=== PATIENT | female | born 1990 | race Caucasian/White ===

== ENCOUNTER 2016-09-14 01:25 | Emergency (ER) | payer BC ==
[2016-09-14] MEDS ORDERED: Ondansetron 4 MG/2 ML SDV IVPUSH ONE (02:06)
[2016-09-14] MEDS ORDERED: Sodium Chloride 0.9% 1,000 ML IV ONE (02:06)
--- NOTE | 2016-09-14 02:15 | EDM.PDOC ---
ED HPI GENERAL MEDICAL PROBLEM - General Chief Complaint: Gastrointestinal Problem Stated Complaint: THROWING UP Time Seen by Provider: 09/14/16 01:55 - History of Present Illness INITIAL COMMENTS - FREE TEXT/NARRATIVE: HISTORY AND PHYSICAL: History of present illness: Patient is a 26-year-old female who presents after an episode of difficulty breathing at home those josie sul with a visual disturbance that she describes as her vision having turned "blue" she denies chest pain she has had nausea and vomiting over last 3 days off-and-on she did recently get yesterday she states the last 3 days have been quite stressful although she denies a history of anxiety panic attacks or any other concerns she is not on contraceptive she denies history of DVT PE she denies any other concerns she denies drugs alcohol abuse and is a nonsmoker Review of systems: As per history of present illness and below otherwise all systems reviewed and negative. Past medical history: As per history of present illness and as reviewed below otherwise noncontributory. Surgical history: As per history of present illness and as reviewed below otherwise noncontributory. Social history: No reported history of drug or alcohol abuse. Family history: As per history of present illness and as reviewed below otherwise noncontributory. Physical exam: HEENT: Atraumatic, normocephalic, pupils reactive, negative for conjunctival pallor or scleral icterus, mucous membranes moist, throat clear, neck supple, nontender, trachea midline. Lungs: Clear to auscultation, breath sounds equal bilaterally, chest nontender. Heart: S1S2, regular, negative for clicks, rubs, or JVD. Abdomen: Soft, nondistended, nontender. Negative for masses or hepatosplenomegaly. Negative for costovertebral tenderness. Pelvis: Stable nontender. Genitourinary: Deferred. Rectal: Deferred. Extremities: Atraumatic, negative for cords or calf pain. Neurovascular unremarkable. Neuro: Awake, alert, oriented. Cranial nerves II through XII unremarkable. Cerebellum unremarkable. Motor and sensory unremarkable throughout. Exam nonfocal. Diagnostics: CBC CMP troponin PT INR EKG chest x-ray Therapeutics: Saline 1 L bolus Zofran 4 mg IV Impression: #1 dyspnea resolved #2 visual disturbance resolved Definitive disposition and diagnosis as appropriate pending reevaluation and review of above. Chest Pain Score (Numeric/FACES): 6 LLQ Pain Score (Numeric/FACES): 5 - Related Data Allergies Allergy/AdvReac Type Severity Reaction Status Date / Time amoxicillin Allergy Anaphylactic Verified 09/14/16 01:45 Shock Penicillins Allergy Anaphylactic Verified 09/14/16 01:45 Shock Home Meds: Home Meds . [No Known Home Meds] 04/28/15 [History] Past Medical History - Past Health History Medical/Surgical History: Denies Medical/Surgical History [employer] History: Reports: - Infectious Disease History Infectious Disease History: Reports: Chicken Pox Social & Family History - Family History Family Medical History: Noncontributory - Tobacco Use Smoking Status *Q: Never Smoker - Alcohol Use Days Per Week of Alcohol Use: 3 Number of Drinks Per Day: 4 Total Drinks Per Week: 12 - Recreational Drug Use Recreational Drug Use: No ED ROS GENERAL - Review of Systems Review Of Systems: ROS reveals no pertinent complaints other than HPI. ED EXAM, GENERAL - Physical Exam Exam: See Below (See dictation) Course - Vital Signs Last Recorded V/S: Last Vital Signs Temp 36.4 C 09/14/16 02:30 Pulse 60 09/14/16 02:30 Resp 20 09/14/16 02:30 BP 116/74 09/14/16 02:30 Pulse Ox 98 09/14/16 02:30 - Orders/Labs/Meds Orders: Active Orders 24 hr Category Date Time Status EKG 12 Lead [EKG Documentation Completion] [RC] STAT Care 09/14/16 01:56 Active Chest 1V Frontal [CR] Stat Exams 09/14/16 02:05 Taken CULTURE URINE [RM] Stat Lab 09/14/16 03:24 Uncollected Labs: Laboratory Tests 09/14/16 09/14/16 09/14/16 Range/Units 01:30 01:30 01:50 WBC 5.64 (4.0-11.0) K/uL RBC 4.29 L (4.30-5.90) M/uL Hgb 13.6 (12.0-16.0) g/dL Hct 40.2 (36.0-46.0) % MCV 93.7 (80.0-98.0) fL MCH 31.7 (27.0-32.0) pg MCHC 33.8 (31.0-37.0) g/dL RDW Std Deviation 43.3 (28.0-62.0) fl RDW Coeff of Aly 13 (11.0-15.0) % Plt Count 277 (150-400) K/uL MPV 9.30 (7.40-12.00) fL Neut % (Auto) 42.0 L (48.0-80.0) % Lymph % (Auto) 44.9 H (16.0-40.0) % [place] % (Auto) 9.2 (0.0-15.0) % Eos % (Auto) 3.4 (0.0-7.0) % Baso % (Auto) 0.5 (0.0-1.5) % Neut # (Auto) 2.4 (1.4-5.7) K/uL Lymph # (Auto) 2.5 H (0.6-2.4) K/uL [place] # (Auto) 0.5 (0.0-0.8) K/uL Eos # (Auto) 0.2 (0.0-0.7) K/uL Baso # (Auto) 0.0 (0.0-0.1) K/uL Nucleated RBC % 0.0 /100WBC Nucleated RBCs # 0 K/uL INR (0.86-1.11) Sodium (136-146) mmol/L Potassium (3.5-5.1) mmol/L Chloride (98-110) mmol/L Carbon Dioxide (21-31) mmol/L BUN (6.0-23.0) mg/dL Creatinine (0.6-1.5) mg/dL Est Cr Clr Drug Dosing mL/min Estimated GFR (MDRD) ml/min Glucose (60-110) mg/dL Calcium (8.8-10.8) mg/dL Total Bilirubin (0.1-1.5) mg/dL AST (5-40) IU/L ALT (8-54) IU/L Alkaline Phosphatase (40-150) Troponin I (0.0-0.29) NG/ML Total Protein (6.0-8.0) g/dL Albumin (3.5-5.0) g/dL Globulin (2.0-3.5) g/dL Albumin/Globulin Ratio (1.3-2.8) Urine Color YELLOW Urine Appearance CLEAR Urine pH 6.5 (5.0-8.0) Ur Specific [place] 1.010 (1.001-1.035) Urine Protein NEGATIVE (NEGATIVE) mg/dL Urine Glucose (UA) NEGATIVE (NEGATIVE) mg/dL Urine Ketones NEGATIVE (NEGATIVE) mg/dL Urine Occult Blood LARGE H (NEGATIVE) Urine Nitrite NEGATIVE (NEGATIVE) Urine Bilirubin NEGATIVE (NEGATIVE) Urine Urobilinogen 0.2 (<2.0) EU/dL Ur Leukocyte Esterase NEGATIVE (NEGATIVE) Urine RBC 25-30 (0-2/HPF) Urine WBC 0-2 (0-5/HPF) Ur Epithelial Cells RARE (NONE-FEW) Urine Bacteria RARE (NEGATIVE) Urine HCG, Qual NEGATIVE (NEGATIVE) 09/14/16 09/14/16 09/14/16 Range/Units 01:50 01:50 01:50 WBC (4.0-11.0) K/uL RBC (4.30-5.90) M/uL Hgb (12.0-16.0) g/dL Hct (36.0-46.0) % MCV (80.0-98.0) fL MCH (27.0-32.0) pg MCHC (31.0-37.0) g/dL RDW Std Deviation (28.0-62.0) fl RDW Coeff of Aly (11.0-15.0) % Plt Count (150-400) K/uL MPV (7.40-12.00) fL Neut % (Auto) (48.0-80.0) % Lymph % (Auto) (16.0-40.0) % [place] % (Auto) (0.0-15.0) % Eos % (Auto) (0.0-7.0) % Baso % (Auto) (0.0-1.5) % Neut # (Auto) (1.4-5.7) K/uL Lymph # (Auto) (0.6-2.4) K/uL [place] # (Auto) (0.0-0.8) K/uL Eos # (Auto) (0.0-0.7) K/uL Baso # (Auto) (0.0-0.1) K/uL Nucleated RBC % /100WBC Nucleated RBCs # K/uL INR 0.92 (0.86-1.11) Sodium 140 (136-146) mmol/L Potassium 3.8 (3.5-5.1) mmol/L Chloride 108 (98-110) mmol/L Carbon Dioxide 22 (21-31) mmol/L BUN 13 (6.0-23.0) mg/dL Creatinine 0.8 (0.6-1.5) mg/dL Est Cr Clr Drug Dosing 104.26 mL/min Estimated GFR (MDRD) > 60.0 ml/min Glucose 96 (60-110) mg/dL Calcium 8.6 L (8.8-10.8) mg/dL Total Bilirubin 0.6 (0.1-1.5) mg/dL AST 20 (5-40) IU/L ALT 15 (8-54) IU/L Alkaline Phosphatase 58 (40-150) Troponin I < 0.10 (0.0-0.29) NG/ML Total Protein 7.2 (6.0-8.0) g/dL Albumin 4.4 (3.5-5.0) g/dL Globulin 2.8 (2.0-3.5) g/dL Albumin/Globulin Ratio 1.6 (1.3-2.8) Urine Color Urine Appearance Urine pH (5.0-8.0) Ur Specific [place] (1.001-1.035) Urine Protein (NEGATIVE) mg/dL Urine Glucose (UA) (NEGATIVE) mg/dL Urine Ketones (NEGATIVE) mg/dL Urine Occult Blood (NEGATIVE) Urine Nitrite (NEGATIVE) Urine Bilirubin (NEGATIVE) Urine Urobilinogen (<2.0) EU/dL Ur Leukocyte Esterase (NEGATIVE) Urine RBC (0-2/HPF) Urine WBC (0-5/HPF) Ur Epithelial Cells (NONE-FEW) Urine Bacteria (NEGATIVE) Urine HCG, Qual (NEGATIVE) Meds: Medications Discontinued Medications Generic Name Dose Route Start Last Admin Trade Name Freq PRN Reason Stop Dose Admin Sodium Chloride 1,000 mls @ 999 mls/hr 09/14/16 02:06 09/14/16 02:09 Normal Saline IV 09/14/16 03:06 999 mls/hr .Bolus ONE Administration Ondansetron HCl 4 mg 09/14/16 02:06 09/14/16 02:10 Zofran IVPUSH 09/14/16 02:07 4 mg ONETIME ONE Administration Departure - Departure Time of Disposition: 03:25 Disposition: Home, Self-Care 01 Condition: good Clinical Impression: Dyspnea, Hematuria - Discharge Information Forms: ED Department Discharge Additional Instructions: The following information is given to patients seen in the emergency department who are being discharged to home. This information is to outline your options for follow-up care. We provide all patients seen in our emergency department with a follow-up referral. The need for follow-up, as well as the timing and circumstances, are variable depending upon the specifics of your emergency department visit. If you don't have a primary care physician on staff, we will provide you with a referral. We always advise you to contact your personal physician following an emergency department visit to inform them of the circumstance of the visit and for follow-up with them and/or the need for any referrals to a consulting specialist. The emergency department will also refer you to a specialist when appropriate. This referral assures that you have the opportunity for followup care with a specialist. All of these measure are taken in an effort to provide you with optimal care, which includes your followup. Under all circumstances we always encourage you to contact your private physician who remains a resource for coordinating your care. When calling for followup care, please make the office aware that this follow-up is from your recent emergency room visit. If for any reason you are refused follow-up, please contact the [facility] emergency department at and asked to speak to the emergency department charge nurse. Followup primary medical doctor one to 2 days return as needed as discussed - My Orders Last 24 Hours: My Active Orders 09/14/16 01:56 EKG 12 Lead [EKG Documentation Completion] [RC] STAT 09/14/16 02:05 Chest 1V Frontal [CR] Stat 09/14/16 03:24 CULTURE URINE [RM] Stat - Assessment/Plan Last 24 Hours: My Active Orders 09/14/16 01:56 EKG 12 Lead [EKG Documentation Completion] [RC] STAT 09/14/16 02:05 Chest 1V Frontal [CR] Stat 09/14/16 03:24 CULTURE URINE [RM] Stat
[2016-09-14 02:40] LABS: CHLORIDE,CL 108 mmol/L (98-110); SODIUM,NA 140 mmol/L (136-146)
[2016-09-14 03:53] VITALS: BP 118/81
--- NOTE | 2016-09-14 14:48 | CR ---
EXAM DATE: 09/14/16 PATIENT'S AGE: 26 Patient: LEONOR STONE Facility: [place], [place] Site . Site : 1990 Study: XRay Chest [id number]/30/2017 2:43:32 AM Ordering Physician: Erick Scott Final Report: INDICATION: chest pain TECHNIQUE: Chest 1 view. COMPARISON: None. FINDINGS: Cardiovascular and mediastinum: Heart size and vasculature are normal in caliber and appearance. Mediastinum is within normal limits. Lungs and pleural space: Lungs are clear. No sign of infiltrate or mass. No sign of pleural effusion. No pneumothorax. Bones and soft tissues: No significant findings. IMPRESSION: Unremarkable chest. Dictated by: Ra Gonzalez MD @ 09/14/2016 02:46:37 (Electronic Signature) Report Signed by Proxy. [facility] MEDICAL CENTERMark Anthony
== END 2016-09-14 03:40 | disposition home or self-care (01) ==
LOC: MW.ED 01:25
DX: R06.00 Dyspnea, unspecified (principal); R31.9 Hematuria, unspecified; Z88.0 Allergy status to penicillin; Z88.1 Allergy status to other antibiotic agents
CPT/HCPCS: 36415; 71010; 80053; 81001; 81025; 84484; 85025; 85610; 87086; 93005; 96361; 96374; 99285; J2405; J7040; 99284

== ENCOUNTER 2019-10-21 01:26 | Emergency (ER) | payer SELFPAY ==
[2019-10-21 01:40] VITALS: BP 106/88
[2019-10-21] MEDS ORDERED: Sodium Chloride 0.9% 2.5 ML Syringe FLUSH PRN (02:10)
[2019-10-21] MEDS ORDERED: Ondansetron 4 MG/2 ML SDV IVPUSH ONE (02:10)
[2019-10-21] MEDS ORDERED: Sodium Chloride 0.9% 10 ML Syringe FLUSH PRN (02:10)
[2019-10-21 02:54] LABS: BLOOD UREA NITROGEN,BUN 7 mg/dL (7.0-18.0); CARBON DIOXIDE,CO2 23.7 mmol/L (21.0-32.0); CHLORIDE,CL 104 mmol/L (98-107); GLUCOSE RANDOM 88 mg/dL (74-106); LIPASE 251 U/L (73-393); POTASSIUM,K 3.4 mmol/L (3.5-5.1); SODIUM,NA 139 mmol/L (136-145)
--- NOTE | 2019-10-21 05:08 | US ---
INDICATION: Right lower quadrant pain TECHNIQUE: Ultrasound pelvis transabdominal. Real-time kidd scale sonographic images with spectral and color Doppler imaging of the ovaries were obtained of the right lower quadrant. COMPARISON: None FINDINGS: Appendix: The appendix cannot be visualized by sonography. Right ovary: 3.6 x 3.4 cm. The right ovary is normal in appearance and echotexture. Arterial blood flow seen within the right ovary. Cul-de-sac: No significant ascites noted. IMPRESSION: 1. Unremarkable pelvic ultrasound. The appendix cannot be visualized by sonography. Dictated by Jairo Caceres MD @ 10/21/2019 5:05:59 AM Dictated by: Jairo Caceres MD @ 10/21/2019 05:06:02 (Electronically Signed)
--- NOTE | 2019-10-21 05:25 | EDM.PDOC ---
ED HPI GENERAL MEDICAL PROBLEM - General Chief Complaint: Abdominal Pain Stated Complaint: LOWER ABDOMINAL PAIN, 20 WKS Time Seen by Provider: 10/21/19 01:30 Source of Information: Reports: Patient History Limitations: Reports: No Limitations - History of Present Illness INITIAL COMMENTS - FREE TEXT/NARRATIVE: 29-year-old female, G3, approximately 20 weeks presenting with right lower quadrant abdominal pain, nausea, and vomiting. She reports the onset of right lower quadrant abdominal pain around 6 PM this evening while at rest. Pain has been waxing and waning but is never totally gone away. Nothing makes it better or worse, she describes it as "aching" and nonradiating. No history of prior pain like this. She also reports nausea and 8-10 episodes of nonbloody emesis earlier today. Denies any fever, chills, vaginal bleeding or discharge, dysuria, urinary frequency, flank pain, hematuria, GI bleeding. No self treatment prior to arrival. Right Lower Abdomen Pain Score (Numeric/FACES): 5 - Related Data Allergies Allergy/AdvReac Type Severity Reaction Status Date / Time amoxicillin Allergy Anaphylactic Verified 10/21/19 01:43 Shock Penicillins Allergy Anaphylactic Verified 10/21/19 01:44 Shock Home Meds: Home Meds Vit37/Iron/Folic Acid [Prenata] 1 mg PO DAILY 10/21/19 [History] Past Medical History - Past Health History Medical/Surgical History: Denies Medical/Surgical History HEENT History: Reports: None Cardiovascular History: Reports: None Respiratory History: Reports: None Gastrointestinal History: Reports: None Genitourinary History: Reports: None [facility] History: Reports: None Musculoskeletal History: Reports: None Neurological History: Reports: None Psychiatric History: Reports: None Endocrine/Metabolic History: Reports: None Hematologic History: Reports: None Immunologic History: Reports: None Oncologic (Cancer) History: Reports: None Dermatologic History: Reports: None - Infectious Disease History Infectious Disease History: Reports: None - Past Surgical History Head Surgeries/Procedures: Reports: None Female Surgical History: Reports: None Social & Family History - Family History Family Medical History: Noncontributory - Tobacco Use Smoking Status *Q: Never Smoker Second Hand Smoke Exposure: No - Caffeine Use Caffeine Use: Reports: None - Recreational Drug Use Recreational Drug Use: No ED ROS GENERAL - Review of Systems Review Of Systems: See Below Constitutional: Denies: Fever, Chills HEENT: Reports: No Symptoms Respiratory: Denies: Shortness of Breath Cardiovascular: Denies: Chest Pain Endocrine: Denies: Fatigue GI/Abdominal: Reports: Abdominal Pain, Nausea, Vomiting. Denies: Bloody Stool, Diarrhea, Distension, Hematemesis, Hematochezia, Melena : Denies: Discharge, Dysuria, Flank Pain, Frequency, Hematuria, Pain, Urgency Musculoskeletal: Denies: Back Pain Skin: Denies: Lesions Neurological: Denies: Headache Psychiatric: Reports: No Symptoms Hematologic/Lymphatic: Reports: No Symptoms Immunologic: Reports: No Symptoms ED EXAM, GI/ABD - Physical Exam Exam: See Below Text/Narrative:: Vital signs reviewed. Nursing notes reviewed. Constitutional: Awake, alert, non-distressed. Head: Normocephalic, atraumatic. Eyes: EOMI, conjunctiva normal, no discharge, no scleral icterus. Ears, Nose, Throat: External ears and nose normal, moist oral mucosa. Cardiovascular: 2+ radial pulse, capillary refill less than 2 seconds. Pulmonary: normal work of breathing, no accessory muscle use. Abdomen/GI: Soft, mild right lower quadrant tenderness, nondistended, no guarding or rigidity, no masses. No CVA tenderness Musculoskeletal: No deformities. Integumentary: Appropriate color for ethnicity, warm, dry, no pallor or jaundice, no rash. Neurologic: Alert, answering questions appropriately, normal speech, no facial droop, moving all extremities well. Psychiatric: Appropriate mood and affect, normal thought process. Course - Vital Signs Text/Narrative:: Patient hemodynamically stable, afebrile, well-appearing, looks nontoxic. Differential diagnosis includes but is not limited to: appendicitis, ovarian torsion, inguinal hernia (umbilical vs direct vs indirect), abdominal wall hernia, constipation, rectus abdominus muscle strain, mesenteric ischemia, cystitis, pyelonephritis, renal colic, aortic aneurysm, gastritis, mesenteric thrombus, strangulated bowel, small bowel obstruction, IBD, and many others. Afebrile, no leukocytosis, no active vomiting, negative CRP. These factors make appendicitis less likely but not impossible. Ultrasound demonstrated normal arterial flow to the left ovary, although the radiologist did not comment on venous flow. Pain is been waxing and waning and not absent at any point, which argues against intermittent torsion. No evidence of a hernia on physical examination. Pain is not out of proportion to the examination, and pain is not colicky. Lactate is negative, this argues against mesenteric ischemia. No report of any urinary symptoms and urinalysis does not appear infected. Right- sided pain makes AAA less likely. No abdominal distention, which argues against bowel obstruction. No diarrhea or bloody bowel movements. OB ultrasound demonstrated normal heart rate with the fetus in breech position. I did discuss the risks and benefits of obtaining a CT scan of the abdomen and pelvis given that we have not fully differentiated the cause of the patient's right lower quadrant pain. Appendicitis is an obvious concern and I explained that we would potentially be missing this with the current work-up. I did offer to obtain a CT scan and explained that the risk of obtaining a single CT scan during is quite low given that she has not had one with this gestation. I explained the possible risk of missing appendicitis including rupture, intra-abdominal infection, sepsis, and need for a more involved open operation and subsequent complications. At this point the patient wants to forego a CT scan and is comfortable with the idea of going home with [id number] Tylenol and close OB follow-up, she has an appointment in approximately 3 days time. I instructed her to return to the ED immediately if her pain worsens, she develops a fever, chills, repeated vomiting, or if anything worsens. Plan: Patient is stable to discharge home with outpatient primary care follow- up. Short course of Zofran was prescribed. Strict emergency department return precautions were provided, patient indicated understanding. All questions were answered prior to departure. Discharged in good condition. Last Recorded V/S: Last Vital Signs Temp 36.2 C 10/21/19 01:39 Pulse Resp 18 10/21/19 01:39 BP 106/88 10/21/19 01:39 Pulse Ox 98 10/21/19 01:39 Orthostatic Blood Pressure [ 116/67 Standing] Orthostatic Blood Pressure [ 113/64 Sitting] Orthostatic Blood Pressure [ 112/54 Supine] - Orders/Labs/Meds Orders: Active Orders 24 hr Category Date Time Status Orthostatic Vital Signs [RC] ASDIRECTED Care 10/21/19 02:10 Active OB Transvaginal [US] Routine Exams 10/21/19 04:41 Taken Saline Lock Insert [OM.PC] Stat Oth 10/21/19 02:10 Ordered Labs: Laboratory Tests 10/21/19 10/21/19 10/21/19 Range/Units 01:37 01:37 02:27 WBC 8.82 (4.0-11.0) K/uL RBC 3.43 L (4.30-5.90) M/uL Hgb 10.6 L (12.0-16.0) g/dL Hct 31.4 L (36.0-46.0) % MCV 91.5 (80.0-98.0) fL MCH 30.9 (27.0-32.0) pg MCHC 33.8 (31.0-37.0) g/dL RDW Std Deviation 44.3 (28.0-62.0) fl RDW Coeff of Aly 13 (11.0-15.0) % Plt Count 225 (150-400) K/uL MPV 9.40 (7.40-12.00) fL Neut % (Auto) 74.9 (48.0-80.0) % Lymph % (Auto) 16.9 (16.0-40.0) % Leake % (Auto) 6.9 (0.0-15.0) % Eos % (Auto) 1.2 (0.0-7.0) % Baso % (Auto) 0.1 (0.0-1.5) % Neut # (Auto) 6.6 H (1.4-5.7) K/uL Lymph # (Auto) 1.5 (0.6-2.4) K/uL Leake # (Auto) 0.6 (0.0-0.8) K/uL Eos # (Auto) 0.1 (0.0-0.7) K/uL Baso # (Auto) 0.0 (0.0-0.1) K/uL Nucleated RBC % 0.0 /100WBC Nucleated RBCs # 0 K/uL Lactate (0.20-2.00) mmol/L Sodium (136-145) mmol/L Potassium (3.5-5.1) mmol/L Chloride (98-107) mmol/L Carbon Dioxide (21.0-32.0) mmol/L BUN (7.0-18.0) mg/dL Creatinine (0.6-1.0) mg/dL Est Cr Clr Drug Dosing mL/min Estimated GFR (MDRD) ml/min Glucose (74-106) mg/dL Calcium (8.5-10.1) mg/dL Total Bilirubin (0.2-1.0) mg/dL AST (15-37) IU/L ALT (14-63) IU/L Alkaline Phosphatase (46-116) U/L C-Reactive Protein (0.00-0.90) mg/dL Total Protein (6.4-8.2) g/dL Albumin (3.4-5.0) g/dL Globulin (2.6-4.0) g/dL Albumin/Globulin Ratio (0.9-1.6) Lipase (73-393) U/L Urine Color YELLOW Urine Appearance CLEAR Urine pH 6.0 (5.0-8.0) Ur Specific [place] 1.015 (1.001-1.035) Urine Protein NEGATIVE (NEGATIVE) mg/dL Urine Glucose (UA) NEGATIVE (NEGATIVE) mg/dL Urine Ketones NEGATIVE (NEGATIVE) mg/dL Urine Occult Blood NEGATIVE (NEGATIVE) Urine Nitrite NEGATIVE (NEGATIVE) Urine Bilirubin NEGATIVE (NEGATIVE) Urine Urobilinogen 0.2 (<2.0) EU/dL Ur Leukocyte Esterase NEGATIVE (NEGATIVE) Urine HCG, Qual POSITIVE (NEGATIVE) 10/21/19 10/21/19 Range/Units 02:27 02:27 WBC (4.0-11.0) K/uL RBC (4.30-5.90) M/uL Hgb (12.0-16.0) g/dL Hct (36.0-46.0) % MCV (80.0-98.0) fL MCH (27.0-32.0) pg MCHC (31.0-37.0) g/dL RDW Std Deviation (28.0-62.0) fl RDW Coeff of Aly (11.0-15.0) % Plt Count (150-400) K/uL MPV (7.40-12.00) fL Neut % (Auto) (48.0-80.0) % Lymph % (Auto) (16.0-40.0) % Leake % (Auto) (0.0-15.0) % Eos % (Auto) (0.0-7.0) % Baso % (Auto) (0.0-1.5) % Neut # (Auto) (1.4-5.7) K/uL Lymph # (Auto) (0.6-2.4) K/uL Leake # (Auto) (0.0-0.8) K/uL Eos # (Auto) (0.0-0.7) K/uL Baso # (Auto) (0.0-0.1) K/uL Nucleated RBC % /100WBC Nucleated RBCs # K/uL Lactate 0.6 (0.20-2.00) mmol/L Sodium 139 (136-145) mmol/L Potassium 3.4 L (3.5-5.1) mmol/L Chloride 104 (98-107) mmol/L Carbon Dioxide 23.7 (21.0-32.0) mmol/L BUN 7 (7.0-18.0) mg/dL Creatinine 0.5 L (0.6-1.0) mg/dL Est Cr Clr Drug Dosing 162.90 mL/min Estimated GFR (MDRD) > 60.0 ml/min Glucose 88 (74-106) mg/dL Calcium 8.6 (8.5-10.1) mg/dL Total Bilirubin 0.2 (0.2-1.0) mg/dL AST 16 (15-37) IU/L ALT 13 L (14-63) IU/L Alkaline Phosphatase 42 L (46-116) U/L C-Reactive Protein < 0.20 (0.00-0.90) mg/dL Total Protein 6.6 (6.4-8.2) g/dL Albumin 3.1 L (3.4-5.0) g/dL Globulin 3.5 (2.6-4.0) g/dL Albumin/Globulin Ratio 0.9 (0.9-1.6) Lipase 251 (73-393) U/L Urine Color Urine Appearance Urine pH (5.0-8.0) Ur Specific [place] (1.001-1.035) Urine Protein (NEGATIVE) mg/dL Urine Glucose (UA) (NEGATIVE) mg/dL Urine Ketones (NEGATIVE) mg/dL Urine Occult Blood (NEGATIVE) Urine Nitrite (NEGATIVE) Urine Bilirubin (NEGATIVE) Urine Urobilinogen (<2.0) EU/dL Ur Leukocyte Esterase (NEGATIVE) Urine HCG, Qual (NEGATIVE) Meds: Medications Discontinued Medications Generic Name Dose Route Start Last Admin Trade Name Freq PRN Reason Stop Dose Admin Ondansetron HCl 4 mg 10/21/19 02:10 10/21/19 02:27 Zofran IVPUSH 10/21/19 02:11 4 mg ONETIME ONE Administration Sodium Chloride 10 ml 10/21/19 02:10 Saline Flush FLUSH ASDIRECTED PRN Keep Vein Open Sodium Chloride 2.5 ml 10/21/19 02:10 Saline Flush FLUSH ASDIRECTED PRN Keep Vein Open Departure - Departure Time of Disposition: 05:26 Disposition: Home, Self-Care 01 Condition: Good Clinical Impression: Right lower quadrant abdominal pain affecting - Discharge Information *PRESCRIPTION DRUG MONITORING PROGRAM REVIEWED*: Not Applicable *COPY OF PRESCRIPTION DRUG MONITORING REPORT IN PATIENT MARY: Not Applicable Instructions: Abdominal Pain During , Pain Without a Known Cause Forms: ED Department Discharge Additional Instructions: Thank you for choosing the [facility] emergency department in [place] for your medical needs today. It was a pleasure caring for you. You were seen in the emergency department for abdominal pain, nausea, and vomiting. The ultrasounds of your and your right ovary look reassuring at this point but we could not see your appendix. Your blood work and urinalysis look reassuring. I am glad you are feeling better after some nausea medication and Tylenol. We did discuss the possibility of obtaining a CT scan, and at this point you decided that you do not want to pursue this. I would like for you to follow-up with your [facility] in the next few days. You can take [id number] Tylenol for pain. You should come back to the ER if your pain worsens, if you develop a fever or chills or repeated vomiting, or you are feeling worse in any way. Please return the emergency department immediately if your symptoms worsen or if you feel worse. The following information is given to patients seen in the emergency department who are being discharged. This information is to outline your options for follow-up care. We provide all patients seen in our emergency department with a follow-up referral. The need for follow-up, as well as the timing and circumstances, are variable depending upon the specifics of your emergency department visit. If you don't have a primary care physician on staff, we will provide you with a referral. We always advise you to contact your personal physician following an emergency department visit to inform them of the circumstance of the visit and for follow-up with them and/or the need for any referrals to a consulting specialist. The emergency department will also refer you to a specialist when appropriate. This referral assures that you have the opportunity for follow-up care with a specialist. All of these measure are taken in an effort to provide you with optimal care, which includes your follow-up. Under all circumstances we always encourage you to contact your private physician who remains a resource for coordinating your care. When calling for follow-up care, please make the office aware that this follow-up is from your recent emergency room visit. If for any reason you are refused follow-up, please contact the [facility] Emergency Department at and asked to speak to the emergency department charge nurse. If you do not have a primary care physician that is caring for you, you can contact these clinics below to set up an appointment to establish care: [facility] - Primary Care [address] [place] [id number] [address] [address] Sepsis Event Note (ED) - Evaluation Sepsis Screening Result: No Definite Risk - Focused Exam Vital Signs: Vital Signs Temp Resp BP Pulse Ox 10/21/19 01:39 36.2 C 18 106/88 98 - My Orders Last 24 Hours: My Active Orders 10/21/19 02:10 Orthostatic Vital Signs [RC] ASDIRECTED Saline Lock Insert [OM.PC] Stat 10/21/19 04:41 OB Transvaginal [US] Routine - Assessment/Plan Last 24 Hours: My Active Orders 10/21/19 02:10 Orthostatic Vital Signs [RC] ASDIRECTED Saline Lock Insert [OM.PC] Stat 10/21/19 04:41 OB Transvaginal [US] Routine
--- NOTE | 2019-10-22 16:18 | US ---
INDICATION: Pelvic pain TECHNIQUE: Ultrasound OB pelvis transabdominal. Real-time kidd-scale imaging of the fetus was performed. COMPARISON: None FINDINGS: Sonographic imaging demonstrates a single intrauterine gestation. heart rate: 142 bpm Orientation: Breech Placenta: Anterior with the margin 2.2 cm from the internal cervical os Amniotic fluid: Subjectively normal with single deepest pocket (SDP) for cm Cervix: 4.7 cm in length The composite ultrasound gestational age is calculated at 19 weeks, 1 day. The estimated weight is 276+/-40 grams which lies at the 79%. Biparietal diameter: 4.5 cm Head circumference: 16.4 cm Abdominal circumference: 14.1 cm Femur length: 2.8 cm IMPRESSION: 1. Single viable intrauterine with an estimated gestational age of 19 weeks, 1 day and breech presentation. 2. Low lying anterior placenta noted, 2.2 cm from the internal cervical os. Dictated by Jairo Caceres MD @ 10/21/2019 5:03:29 AM Dictated by: Jairo Caceres MD @ 10/21/2019 05:03:33 (Electronically Signed) AYLA
== END 2019-10-21 05:35 | disposition home or self-care (01) ==
LOC: MERGE 01:26 → MW.ED 01:26
DX: O99.89 Other specified diseases and conditions complicating pregnancy, childbirth and the puerperium (principal); R10.31 Right lower quadrant pain; Z88.1 Allergy status to other antibiotic agents; Z88.0 Allergy status to penicillin; Z3A.20 20 weeks gestation of pregnancy
CPT/HCPCS: 36415; 76705; 76805; 76817; 80053; 81003; 81025; 83605; 83690; 85025; 86140; 96374; 99284; J2405; 99283